=== PATIENT | male | born 1970 | race African-American/Black ===

== ENCOUNTER 2018-08-30 13:03 | Emergency (ER) | payer SELFPAY ==
[~2018-08-30] VITALS: Ht 177.8 cm; Wt 100.0 kg
[2018-08-30 13:31] VITALS: BP 151/115
== END 2018-08-30 16:25 | disposition left against medical advice (07) ==
LOC: ER 13:03
DX: R10.9 Unspecified abdominal pain (principal); Z53.21 Procedure and treatment not carried out due to patient leaving prior to being seen by health care provider